=== PATIENT | female | born 1970 | race Caucasian/White ===

== ENCOUNTER → 2018-12-14 10:37 | Outpatient (CLI) | payer OTHER, SELFPAY ==
--- NOTE | 2018-12-14 | DI.US.S_ITS ---
PROCEDURE: US SOFT TISSUE HEAD AND NECK INDICATIONS: THROAT PRESSURE; POSSIBLE MASSES TECHNIQUE: Real-time scanning was performed of the neck region of interest, with image documentation. COMPARISON: None. FINDINGS: Scanning is performed at the areas of clinical concern. No masses can be seen by ultrasound. IMPRESSION: Negative ultrasound. If there is strong clinical concern for neck masses, then please consider a dedicated soft tissue protocol neck CT with IV contrast for further evaluation. Dictated by: Laith Liang M.D. on 12/14/2018 at 12:29 Approved by: Laith Liang M.D. on 12/14/2018 at 12:29
== END ==
PROVIDERS: PCP Family Medicine; Visit Provider Family Medicine
DX: F45.8 Other somatoform disorders (principal)
CPT/HCPCS: 76536

== ENCOUNTER → 2020-06-26 11:09 | Outpatient (CLI) | payer BC, SELFPAY ==
--- NOTE | 2020-06-26 | DI.MRI.S_ITS ---
PROCEDURE: MR HEAD/BRAIN WO CON INDICATIONS: Tinnitus, left ear TECHNIQUE: Noncontrast axial T1 spin echo, axial T2 fast spin echo, sagittal and axial FLAIR, coronal T2 fast spin echo, axial gradient echo, axial diffusion and ADC through the brain. COMPARISON: None. FINDINGS: Image quality: Excellent. CSF Spaces: Basal cisterns are patent. No extra-axial fluid collections. Ventricles are normal in size and shape. Brain: No intracranial masses or hemorrhage. Palafox/white matter interface is normal. Brainstem appears normal. Diffusion-weighted images demonstrate no acute ischemic insult. No chronic ischemic insults. Normal intravascular flow voids are present. Skull and face: Calvarium has normal marrow signal. Orbits appear normal. Sinuses: Sinuses and mastoids are clear. IMPRESSION: Negative noncontrast evaluation of the brain and internal auditory canals. No explanation for tinnitus. No recent infarct. Dictated by: Tayla Magaña M.D. on 06/26/2020 at 12:01 Approved by: Tayla Magaña M.D. on 06/26/2020 at 12:03
== END ==
PROVIDERS: PCP Family Medicine; Referring Provider Family Medicine; Visit Provider Family Medicine
DX: H93.12 Tinnitus, left ear (principal)
CPT/HCPCS: 70551

== ENCOUNTER → 2021-05-06 07:40 | Outpatient (CLI) | payer OTHER, SELFPAY ==
[2021-05-06 20:28] LABS: COVID19 - ORCAS (NP or Nasal) Negative (Negative)
== END ==
PROVIDERS: PCP Family Medicine; Visit Provider Physician Assistant
DX: Z20.822 Contact with and (suspected) exposure to COVID-19 (principal)
CPT/HCPCS: U0003